=== PATIENT | female | born 1980 | race Caucasian/White ===

== ENCOUNTER 2016-12-12 15:02 | Outpatient (CLI) | payer OTHER ==
--- NOTE | 2016-12-13 14:38 | Diagnostic Imaging Report ---
GUALBERTO FRANCOIS [facility] [address] [facility] [address] [address] Report Submission Date: Dec 12, 2016 3:23:42 PM CDT Patient Study Name: KIMANI BOWMAN Date: Dec 12, 2016 3:06:12 PM CDT Modality Type: CR Gender: F Description: LOWER EXTREMITY : 80 Institution: [facility] Physician: GUALBERTO FRANCOIS Examination: Plain film ankle History: Ankle discomfort Findings: 3 views of the ankle demonstrates normal mineralization. No evidence for fracture line. Talar dome is intact. No soft tissue swelling or joint effusion. 2 mm inferior calcaneal spur. Impression: No acute osseous process. Calcaneal spur. Electronically signed on Dec 12, 2016 3:23:42 PM CDT by: Suraj CARROLL
== END 2016-12-12 15:03 ==
LOC: LAB 15:02 → RAD 15:03
PROVIDERS: ATTEND Physician Assistant
DX: M25.572 Pain in left ankle and joints of left foot (principal)
CPT/HCPCS: 73610